=== PATIENT | male | born 1965 | race Caucasian/White ===

== ENCOUNTER 2024-10-02 10:43 | Outpatient (CLI) | payer BC ==
--- NOTE | 2024-10-02 13:48 | RADIOLOGY REPORT ---
CLINICAL HISTORY: Right knee pain. COMPARISON: None TECHNIQUE: Multisequence multiplanar MRI images of the right knee were obtained without contrast. FINDINGS: Cruciate ligaments: ACL and PCL are intact. Extensor mechanism: Quadriceps mechanism and patellar tendon are intact. Mild edema and small amount of fluid in the prepatellar and superficial infrapatellar bursae. Collateral ligaments: Mild edema and trace fluid along the superficial fibers of the lateral collater al ligament consistent with a mild grade 1 sprain in the appropriate clinical setting. Mild edema watson ng the proximal fibers of the lateral collateral ligament, consistent with sprain. Menisci: Extensive blunting of the body of the medial meniscus extending to the body / posterior horn junction, likely free edge tear, with flap component of the tear extending into the adjacent superio r gutter up to 0.7 cm. Horizontal tear involving the anterior horn/ body junction of the lateral meni scus. Cartilage: Chondral fissuring/ fibrillation in the patella, greatest in the lateral patellar facet wi th associated mild subchondral cystic change. Chondral thinning with areas of superimposed chondral f raying and moderate fissuring in the weight-bearing zone of the medial femoral condyle and adjacent p ortions of the medial tibial plateau. Focal osteochondral lesion at the weight-bearing surface of the lateral femoral condyle with cortical depression extending up to 0.7 cm in AP dimension, 0.7 cm in t ransverse dimension, and up to 0.3 cm in depth with adjacent chondral fissuring and areas of near ful l-thickness chondral loss. Slightly more posteriorly in the weight-bearing surface of the lateral fe moral condyle, there is chondral delamination and areas of full-thickness or near full-thickness jabari dral loss. Bones: Prominent marrow edema in the lateral femoral condyle adjacent to the osteochondral lesion elyse cribed above. Joint fluid: Moderate to large joint effusion. [id number] synovitis. Other: No other significant findings. Moderate edema along the myotendinous junction of the popliteus muscle, likely strain. IMPRESSION: 1. 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 2. Free edge tear of the body of the medial meniscus extending to the body / posterior horn junction, with displaced component of the tear extending into the adjacent superior gutter. 3. Suspected horizontal tear at the body/ anterior horn junction of the lateral meniscus. 4. Sprains of the MCL and LCL. 5. Additional findings as detailed above.
== END 2024-10-02 23:59 | disposition home or self-care (01) ==
LOC: MRI 10:43
PROVIDERS: ATTEND Family Medicine Sports Medicine
DX: S83.241A Other tear of medial meniscus, current injury, right knee, initial encounter (principal); S83.411A Sprain of medial collateral ligament of right knee, initial encounter; S83.281A Other tear of lateral meniscus, current injury, right knee, initial encounter; M25.561 Pain in right knee; M25.562 Pain in left knee; M17.11 Unilateral primary osteoarthritis, right knee; M17.12 Unilateral primary osteoarthritis, left knee; E66.9 Obesity, unspecified; M23.306 Other meniscus derangements, unspecified meniscus, right knee; R60.0 Localized edema; X58.XXXA Exposure to other specified factors, initial encounter; Y93.89 Activity, other specified; Y92.89 Other specified places as the place of occurrence of the external cause; Y99.8 Other external cause status
CPT/HCPCS: 73721